=== PATIENT | male | born 1960 | race Two or more races ===

== ENCOUNTER 2018-07-04 13:20 | Outpatient (CLI) | payer OTHER | END 2018-07-04 13:31 | disposition home or self-care (01) | LOC: LAB 13:20 | DX: D33.4 Benign neoplasm of spinal cord (principal); Z51.81 Encounter for therapeutic drug level monitoring ==

== ENCOUNTER 2018-07-07 09:44 | Outpatient (CLI) | payer OTHER | END 2018-07-07 11:09 | disposition home or self-care (01) | LOC: MRI 09:44 | DX: D33.4 Benign neoplasm of spinal cord (principal); M47.14 Other spondylosis with myelopathy, thoracic region | CPT/HCPCS: 72157 ==